=== PATIENT | male | born 1970 | race Caucasian/White ===

== ENCOUNTER 2022-08-07 11:22 | Day surgery (SDC) | payer OTHER ==
[~2022-08-07 11:22] MED LIST: Propofol 200 MG/20 ML SDV ONE; fentaNYL 100 MCG/2 ML SDV ONE
[2022-08-07] MEDS: Lactated Ringers 1,000 ML IV SCH (11:34)
[2022-08-07] MEDS ORDERED: Propofol 200 MG/20 ML SDV ONE (12:24)
== END 2022-08-07 13:30 | disposition home or self-care (01) ==
LOC: VM.SDS 11:22
PROVIDERS: ATTEND Surgery
DX: Z12.11 Encounter for screening for malignant neoplasm of colon (principal); E78.5 Hyperlipidemia, unspecified; F17.210 Nicotine dependence, cigarettes, uncomplicated; Z98.890 Other specified postprocedural states; Z79.899 Other long term (current) drug therapy
CPT/HCPCS: 00812; 45378; J2704; J3010; J7120